=== PATIENT | female | born 1980 | race Caucasian/White ===

== ENCOUNTER 2021-01-16 08:07 | Outpatient (CLI) | payer OTHER ==
[2021-01-16 08:36] LABS: BASOPHILS % (AUTO) 0.5 % (0.0-2.0); EOSINOPHILS # (AUTO) 0.2 K/uL (0-0.4); EOSINOPHILS % (AUTO) 2.3 % (0.0-4.0); HEMATOCRIT 46.2 % (36-48); HEMOGLOBIN 15.6 g/dL (12.0-16.0); LYMPHOCYTES # (AUTO) 1.5 K/uL (2.5-16.5); LYMPHOCYTES % (AUTO) 23.2 % (20.5-51.1); MEAN CORPUSCULAR HEMOGLOBIN 32 pg (27-31); MEAN CORPUSCULAR HGB CONC 34 g/dL (33-37); MEAN CORPUSCULAR VOLUME 93.9 fL (80-94); MONOCYTES # (AUTO) 0.5 K/uL (0.8-1.0); MONOCYTES % (AUTO) 6.8 % (1.7-9.3); NEUTROPHILS # (AUTO) 4.5 K/uL (1.8-7.7); NEUTROPHILS % (AUTO) 67.2 % (42.2-75.2); PLATELET COUNT (AUTO) 336 K/uL (140-450); RED BLOOD CELL COUNT(AUTO) 4.92 MIL/uL (4.20-5.40); RED CELL DISTRIBUTION WIDTH 12.9 % (11.6-13.7); WHITE BLOOD COUNT (AUTO) 6.7 K/uL (4.8-10.8)
[2021-01-16 09:05] LABS: APPEARANCE,URINE CLEAR (CLEAR); BILIRUBIN,URINE NEGATIVE (NEGATIVE); BLOOD, URINE NEGATIVE (NEGATIVE); COLOR,URINE YELLOW (YELLOW); LEUKOCYTE ESTERASE ,URINE 1+ (NEGATIVE); NITRITE, URINE NEGATIVE (NEGATIVE); UGLUCOSE NEGATIVE (NEGATIVE)
[2021-01-16 10:16] LABS: RBC,URINE 0-5 /HPF (0-5); WBC,URINE 0-5 /HPF (0-5)
[2021-01-16 18:22] LABS: ANION GAP 15.1 (8-16); CARBON DIOXIDE 23.9 mmol/L (21-32); CHOL/HDL RATIO 2.8 (1-4.5); CREATININE 0.7 mg/dL (0.6-1.3); THYROID STIMULATING HORMONE 4.22 uIU/mL (0.34-3.74); TOTAL BILIRUBIN 0.2 mg/dL (0.0-1.0)
[2021-01-17 15:07] LABS: ANTI-NUCLEAR ANTIBODY,DIRECT Negative (Negative)
== END 2021-01-16 20:07 | disposition home or self-care (01) ==
LOC: MLB 08:07
PROVIDERS: ATTEND Physician Assistant Medical
DX: Z00.00 Encounter for general adult medical examination without abnormal findings (principal); R53.83 Other fatigue
CPT/HCPCS: 36415; 80053; 81001; 82306; 83036; 84443; 85025; 85651; 86038; 86140; 87086

== ENCOUNTER 2021-02-10 12:26 | Outpatient (CLI) | payer OTHER ==
[2021-02-10 13:56] LABS: THYROID STIMULATING HORMONE 0.07 uIU/mL (0.34-3.74)
[2021-02-10 14:36] LABS: FREE T4 (FREE THYROXINE) 0.26 ng/dL (0.76-1.46)
== END 2021-02-10 23:59 | disposition home or self-care (01) ==
LOC: MLB 12:26
PROVIDERS: ATTEND Physician Assistant Medical
DX: I10 Essential (primary) hypertension (principal); R79.89 Other specified abnormal findings of blood chemistry
CPT/HCPCS: 36415; 84439; 84443

== ENCOUNTER 2021-02-21 09:18 | Emergency (ER) | payer OTHER ==
[~2021-02-21] VITALS: Ht 165.1 cm; Wt 71.7 kg
[2021-02-21 09:19] VITALS: BP 143/103
--- NOTE | 2021-02-21 09:27 | NUR ---
PT AMB TO BED 11.
--- NOTE | 2021-02-21 09:42 | NUR ---
DR. GRANT BEDSIDE EVALUATING PT
--- NOTE | 2021-02-21 09:48 | NUR ---
DOCTOR AT BEDSIDE
--- NOTE | 2021-02-21 09:48 | NUR ---
40 Y/O FEMALE C/O BILATERAL PAIN AND DRAINAGE FROM EARS X1 MONTH. ONLY RECENTLY HAS THERE BEEN PAIN 08/08. A/OX4, GCS-15. PT REPORTS MILD HEARING LOSS IN RIGHT EAR. - FEVER, - DIZZY. PT BREATHING UNLABORED WITH BILATEERAL CHEST RISE AND FALL. PT HAS STEADY GAIT AND ABLE TO AMBULATE UNASSISTED. PT SITTING IN BED WITH RAIL UP X1 WITH BED IN LOWEST SETTING. HX: NONE- SEEING A DIRECTOR OF OPERATIONS HOME HEALTH FOR UNRELATED SYMPTOMS ALLERGIES: NONE MEDS: NONE
[2021-02-21] MEDS ORDERED: COROTSOL BOTH EARS (09:53)
--- NOTE | 2021-02-21 10:20 | NUR ---
Patient discharged with v/s stable. Written and verbal after care instructions given and explained. Patient alert, oriented and verbalized understanding of instructions. Ambulatory with steady gait. All questions addressed prior to discharge. ID band removed. Patient advised to follow up with PMD. Rx of NEOMYCIN SULF/POLYMYXIN B given. Patient educated on indication of medication including possible reaction and side effects. Opportunity to ask questions provided and answered.
== END 2021-02-21 10:19 | disposition home or self-care (01) ==
LOC: MED 09:18
DX: H60.93 Unspecified otitis externa, bilateral (principal); Z79.899 Other long term (current) drug therapy
CPT/HCPCS: 99283

== ENCOUNTER 2022-03-18 16:55 | Emergency (ER) | payer OTHER ==
[~2022-03-18] VITALS: Ht 165.1 cm; Wt 67.1 kg
[~2022-03-18 16:55] MED LIST: COROTSOL BOTH EARS
[2022-03-18 17:00] VITALS: BP 154/70
--- NOTE | 2022-03-18 17:10 | NUR ---
BIB SELF C/O DIZZINESS, VOMITING X TODAY. P : DENIES
[2022-03-18] MEDS ORDERED: ONDA-188 PO (17:33)
[2022-03-18] MEDS ORDERED: MECL-303 PO (17:33)
--- NOTE | 2022-03-18 17:46 | NUR ---
Patient discharged with v/s stable. Written and verbal after care instructions FOR DIZZINESS, BENIGN POSITIONAL VERTIGO AND HOW TO PERFORM THR MINA MANEUVER given and explained. Patient alert, oriented and verbalized understanding of instructions. Ambulatory with steady gait. All questions addressed prior to discharge. ID band removed. Patient advised to follow up with PMD. Rx of ANTIVERT AND ZOFRAN given. Opportunity to ask questions provided and answered.
== END 2022-03-18 17:34 | disposition home or self-care (01) ==
LOC: MED 16:55
DX: R42 Dizziness and giddiness (principal); R03.0 Elevated blood-pressure reading, without diagnosis of hypertension; E03.9 Hypothyroidism, unspecified
CPT/HCPCS: 99283

== ENCOUNTER 2023-02-10 15:15 | Emergency (ER) | payer OTHER ==
[~2023-02-10] VITALS: Ht 165.1 cm; Wt 73.5 kg
[~2023-02-10 15:15] MED LIST changes: +MECL-303 PO; +ONDA-188 PO
[2023-02-10 15:35] VITALS: BP 159/94; PULSE 109; RESP 16; TEMP 97.5; O2SAT 100
[2023-02-10 16:01] LABS: APPEARANCE,URINE CLEAR (CLEAR); BILIRUBIN,URINE NEGATIVE (NEGATIVE); BLOOD, URINE NEGATIVE (NEGATIVE); COLOR,URINE YELLOW (YELLOW); LEUKOCYTE ESTERASE ,URINE TRACE (NEGATIVE); NITRITE, URINE NEGATIVE (NEGATIVE); PH,URINE 7.5 (5.0-9.0); PROTEIN,URINE NEGATIVE (NEGATIVE); UGLUCOSE NEGATIVE (NEGATIVE); UROBILINOGEN,URINE 0.2 EU/dL (0.2 - 1)
[2023-02-10] MEDS ORDERED: ACETAMINOPHEN 325 MG TAB PO ONE (16:05)
[2023-02-10] MEDS ORDERED: KETOROLAC 30 MG/ML VIAL IM ONE (16:05)
[2023-02-10] MEDS ORDERED: methocarbamoL 500 MG TAB PO ONE (16:05)
[2023-02-10 16:29] LABS: BACTERIA,URINE None Seen /HPF (None Seen); RBC,URINE 0-5 /HPF (0-5); SQUAMOUS EPITHELIAL CELL,UR 4-10 (MOD) /LPF (0-3 (FEW)); WBC,URINE 0-5 /HPF (0-5)
[2023-02-10 16:30] LABS: MUCUS,URINE 1+ /LPF (None Seen); TRICHOMONAS,URINE None Seen /HPF (None Seen); URINE AMORPHOUS PHOSPHATES 3+ /HPF (None Seen); YEAST,URINE None Seen /HPF (None Seen)
[2023-02-10] MEDS ORDERED: METH-1681 PO (16:46)
[2023-02-10] MEDS ORDERED: LID5T TP (16:46)
[2023-02-10] MEDS ORDERED: IBUP-2213 PO (16:46)
[2023-02-10 17:00] VITALS: BP 145/88; PULSE 89; RESP 16; TEMP 97.5
[2023-02-12 05:31] VITALS: O2SAT 98
== END 2023-02-10 17:00 | disposition home or self-care (01) ==
LOC: MED 15:15
DX: M54.50 Low back pain, unspecified (principal); Z86.39 Personal history of other endocrine, nutritional and metabolic disease; Z79.899 Other long term (current) drug therapy; Z79.1 Long term (current) use of non-steroidal anti-inflammatories (NSAID)
CPT/HCPCS: 81001; 81025; 96372; 99283; J1885